=== PATIENT | male | born 1975 | race Caucasian/White ===

== ENCOUNTER 2021-02-24 10:48 | Emergency (ER) | payer BC ==
[2021-02-24 12:33] LABS: HEMOGLOBIN 15.7 gm/dl (14.0-17.5); RED BLOOD COUNT 5.17 M/UL (4.20-5.50); WHITE BLOOD COUNT 9.2 K/UL (4.5-11.0)
[2021-02-24 13:03] LABS: BUN/CREATININE RATIO 18 (0-10)
== END 2021-02-24 15:45 | disposition home or self-care (01) ==
LOC: ER1 10:48
PROVIDERS: Physician Assistant Medical
DX: R10.13 Epigastric pain (principal); R11.2 Nausea with vomiting, unspecified; E78.5 Hyperlipidemia, unspecified; E11.9 Type 2 diabetes mellitus without complications; Z90.49 Acquired absence of other specified parts of digestive tract; Z90.89 Acquired absence of other organs
CPT/HCPCS: 80053; 81001; 82150; 83605; 83690; 85025; 96374; 96375; 99284; J2270; J2405; Q9967